=== PATIENT | male | born 1995 | race Asian ===

== ENCOUNTER 2024-03-15 19:28 | Emergency (ER) | payer OTHER ==
[~2024-03-15] VITALS: Ht 170.2 cm; Wt 113.6 kg
[2024-03-15 21:25] VITALS: TEMP 97.8
[2024-03-15] MEDS ORDERED: LORA-1000 PO (22:20)
[2024-03-15] MEDS: LORazepam 1 MG TABLET PO ONE (22:28)
[2024-03-15 22:30] VITALS: BP 133/88; PULSE 79; RESP 18
== END 2024-03-15 23:16 | disposition home or self-care (01) ==
LOC: EMS 19:50
DX: F41.9 Anxiety disorder, unspecified (principal); G47.00 Insomnia, unspecified
CPT/HCPCS: 99283